=== PATIENT | female | born 1965 | race Caucasian/White ===

== ENCOUNTER 2016-08-03 12:13 | Emergency (ER) | payer OTHER ==
--- NOTE | ~2016-08-03 | CR72 ---
[facility] A Service of [facility] RADIOLOGY TEXT RESULTS PATIENT: KD DAWKINS LOCATION: [facility] : 67 UNIT #: [id number] AGE: [address]: Shilpa Gaffney MD SEX: F ORDER DR: [id number] [facility] [address] [place], [place] [address] [id number] MR#: [id number] Acc #: [id number] NAME: KD DAWKINS. : 1965 SEX: F STUDY DATE/TIME: 08/03/2016 12:47 UNIT: [facility] ROOM: STUDY DESCRIPTION: CR Chest Single View Portable Attending Physician: Shilpa Gaffney M.D. Referring Physician: Self Referral-Refer Use Only Ordering Physician: Shilpa Gaffney M.D. Primary Care Physician: Leonel Gamble M.D. MEDICAL IMAGING REPORT This report is preliminary unless electronic signature is present EXAM Portable chest INDICATION 51-year-old female with shortness of breath for 1-1/2 weeks. COMPARISON 01/15/2013 FINDINGS There is no airspace consolidation. Calcified granulomas in the right lung. Heart size is normal. Visualized osseous structures are unremarkable. IMPRESSION No active disease. Dictated by... Neil Rodriguez M.D. THIS IS AN ELECTRONICALLY VERIFIED REPORT Neil Rodriguez M.D. at 08/04/2016 4:19 PM ELAINE/bimal TD: 08/03/2016 18:59 JOB #: [id number] MEDICAL IMAGING REPORT COPY
[~2016-08-03 12:13] MED LIST: FLEXERIL10 M1 PO; NO MEDICATIONS; PHENERGAN PO; VICODIN PO; VOLTAREN50 MG PO; VOLTAREN75 MG PO
[2016-08-03 13:04] LABS: INFLUENZA A NEG (NEG); INFLUENZA B NEG (NEG)
== END 2016-08-03 14:30 | disposition home or self-care (01) ==
LOC: CED 12:13
PROVIDERS: Emergency Medicine
DX: J20.9 Acute bronchitis, unspecified (principal); F32.9 Major depressive disorder, single episode, unspecified; F17.210 Nicotine dependence, cigarettes, uncomplicated; Z90.710 Acquired absence of both cervix and uterus
CPT/HCPCS: 71010; 87804; 99283